=== PATIENT | female | born 1975 | race American Indian/Alaskan Native ===

== ENCOUNTER 2017-06-30 10:16 | Emergency (ER) | payer BC ==
[2017-06-30 10:38] VITALS: BP 126/81
--- NOTE | 2017-06-30 11:28 | Emergency Department Report ---
ED Eye Problem HPI - General Chief complaint: Eye Problems Stated complaint: NAUSEA/VOMITING Time Seen by Provider: 06/30/17 11:22 Source: patient Mode of arrival: Ambulatory Limitations: No Limitations - History of Present Illness Initial comments: 42-year-old -[place] female comes in for complaint of pinkeye that started last Sunday not this Sunday. Patient reports that she went to [facility] and was given medication for her eyes which was tobramycin drops. Patient reports that the eyedrops have not been working and they're making her lightheaded. Patient reports to the right eye soreness on the top of them are itchy she does admit to mild photophobia and denies any blurriness denies any change in vision. Patient has no past medical history currently takes no other medications. MD chief complaint: eye pain, eye redness -: week(s) (1) Location: right eye, left eye, both eyes Eye Symptoms: redness, itching, photophobia Severity scale (0 -10): 7 Consistency: constant Treatments Prior to Arrival: other (tobramycin drops) - Related Data Previous Rx's Medication Instructions Recorded Last Taken Type Ketotifen Fumarate [Zaditor] 5 ml OP QDAY 30 Days #1 bottle 06/30/17 Unknown Rx Allergies Allergy/AdvReac Type Severity Reaction Status Date / Time No Known Allergies Allergy Unverified 06/30/17 11:34 ED Review of Systems ROS: Stated complaint: NAUSEA/VOMITING Other details as noted in HPI Constitutional: denies: chills, fever Eyes: eye pain ENT: denies: ear pain, throat pain Respiratory: denies: cough, shortness of breath, wheezing Cardiovascular: denies: chest pain, palpitations Endocrine: no symptoms reported Gastrointestinal: denies: abdominal pain, nausea, diarrhea Genitourinary: denies: urgency, dysuria, discharge Musculoskeletal: denies: back pain, joint swelling, arthralgia Skin: denies: rash, lesions Neurological: denies: headache, weakness, paresthesias Psychiatric: denies: anxiety, depression Hematological/Lymphatic: denies: easy bleeding, easy bruising ED Past Medical Hx - Past Medical History Previous Medical History?: No - Surgical History Past Surgical History?: Yes Additional Surgical History: Gallbladder Removed - Social History Smoking Status: Never Smoker - Medications Home Medications: Home Medications Medication Instructions Recorded Confirmed Last Taken Type Ketotifen Fumarate [Zaditor] 5 ml OP QDAY 30 Days #1 bottle 06/30/17 Unknown Rx ED Physical Exam - General Limitations: No Limitations General appearance: alert, in no apparent distress - Head Head exam: Present: atraumatic, normocephalic - Eye Eye exam: Present: normal appearance - Expanded Eye Exam Expanded Pupils: Regular, Round: Bilateral, Reactive: Bilateral, Mydriasis: Bilateral Sclera/Conjunctival: Injection: Bilateral Anterior chamber: Normal Inspection: Bilateral Posterior chamber: Deferred: Bilateral IOP measured with: other ED Course Vital Signs 06/30/17 10:36 Temperature 98.1 F Pulse Rate 85 Respiratory 20 Rate Blood Pressure 126/81 [Right] O2 Sat by Pulse 100 Oximetry ED Medical Decision Making - Medical Decision Making Patient's been evaluated with his provider fast track. Discussed the patient and will do an eye exam. And also discussed the patient is eye exam is within normal limits we'll change her medication. Critical care attestation.: If time is entered above; I have spent that time in minutes in the direct care of this critically ill patient, excluding procedure time. ED Disposition Clinical Impression: Allergic conjunctivitis of both eyes Disposition: DC-01 TO HOME OR SELFCARE Is pt being admited?: No Does the pt Need Aspirin: No Condition: Stable Instructions: Conjunctivitis (ED) Additional Instructions: Use eyedrops as prescribed. 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 Prescriptions: Ketotifen Fumarate [Zaditor] 5 ml OP QDAY 30 Days #1 bottle Referrals: HUMZA CASTRO MD [Primary Care Provider] - 3-5 Days KATHERINE BROWN MD [Staff Physician] - 3-5 Days
[2017-06-30] MEDS ORDERED: FUL-GLO OP ONE ×2 (11:37→11:42)
[2017-06-30] MEDS ORDERED: TETRACAINE 0.5% OU ONE (11:39)
[2017-06-30] MEDS ORDERED: TETRACAINE 0.5% ONE (11:42)
[2017-06-30] MEDS ORDERED: BSS ONE (11:42)
== END 2017-06-30 12:11 | disposition home or self-care (01) ==
LOC: ED 10:16
DX: H10.13 Acute atopic conjunctivitis, bilateral (principal)
CPT/HCPCS: 99282

== ENCOUNTER 2020-02-06 12:43 | Emergency (ER) | payer BC, OTHER ==
--- NOTE | 2020-02-06 14:51 | Emergency Department Report ---
ED Female HPI - General Chief complaint: Urogenital-Female Stated complaint: KLEIN WHEN URINATE/UTI PAIN Time Seen by Provider: 02/06/20 14:28 Source: patient Mode of arrival: Ambulatory Limitations: No Limitations - History of Present Illness Initial comments: Patient states that she has been dealing with recurrent UTI symptoms for the past 2 years and is scheduled to have a follow-up with urology but not for the next 4 weeks. She reports today that she has increased dysuria after just completing a prescription for amoxicillin and she is also concerned she may have a yeast infection. Reports associated lower abdominal pain but denies fevers or backslash flank pain. No alleviating or exacerbating factors. Onset gradual. Moderate severity. - Related Data Previous Rx's Medication Instructions Recorded Last Taken Type Ketotifen Fumarate [Zaditor] 5 ml OP QDAY 30 Days #1 bottle 06/30/17 Unknown Rx Fluconazole [Diflucan TAB] 200 mg PO ONCE #2 tablet 02/06/20 Unknown Rx Phenazopyridine [Pyridium] 200 mg PO TID #9 tab 02/06/20 Unknown Rx cefUROXime [Ceftin] 500 mg PO Q12H #40 tablet 02/06/20 Unknown Rx Allergies Allergy/AdvReac Type Severity Reaction Status Date / Time No Known Allergies Allergy Unverified 06/30/17 11:34 ED Review of Systems ROS: Stated complaint: KLEIN WHEN URINATE/UTI PAIN Other details as noted in HPI Comment: All other systems reviewed and negative Genitourinary: as per HPI ED Past Medical Hx - Past Medical History Previous Medical History?: No - Surgical History Past Surgical History?: Yes Additional Surgical History: Gallbladder Removed - Social History Smoking Status: Never Smoker - Medications Home Medications: Home Medications Medication Instructions Recorded Confirmed Last Taken Type Ketotifen Fumarate [Zaditor] 5 ml OP QDAY 30 Days #1 bottle 06/30/17 Unknown Rx Fluconazole [Diflucan TAB] 200 mg PO ONCE #2 tablet 02/06/20 Unknown Rx Phenazopyridine [Pyridium] 200 mg PO TID #9 tab 02/06/20 Unknown Rx cefUROXime [Ceftin] 500 mg PO Q12H #40 tablet 02/06/20 Unknown Rx ED Physical Exam - General Limitations: No Limitations General appearance: alert, in no apparent distress - Head Head exam: Present: atraumatic, normocephalic - Eye Eye exam: Present: normal appearance - ENT ENT exam: Present: mucous membranes moist - Neck Neck exam: Present: normal inspection - Respiratory Respiratory exam: Present: normal lung sounds bilaterally. Absent: respiratory distress - Cardiovascular Cardiovascular Exam: Present: regular rate, normal rhythm. Absent: systolic murmur, diastolic murmur, rubs, gallop - GI/Abdominal GI/Abdominal exam: Present: soft, normal bowel sounds. Absent: distended, tenderness, guarding, rebound - Extremities Exam Extremities exam: Present: normal inspection - Back Exam Back exam: Present: normal inspection - Neurological Exam Neurological exam: Present: alert, oriented X3 - Psychiatric Psychiatric exam: Present: normal affect, normal mood - Skin Skin exam: Present: warm, dry, intact, normal color. Absent: rash ED Course Vital Signs 02/06/20 13:08 Temperature 99.0 F Pulse Rate 85 Respiratory 18 Rate Blood Pressure 147/83 O2 Sat by Pulse 100 Oximetry ED Medical Decision Making - Lab Data Lab Results 02/06/20 Range/Units 14:26 Urine Color Yellow (Yellow) Urine Turbidity Cloudy (Clear) Urine pH 6.0 (5.0-7.0) Ur Specific Cornelius 1.020 (1.003-1.030) Urine Protein 30 mg/dl (Negative) mg/dL Urine Glucose (UA) Neg (Negative) mg/dL Urine Ketones Neg (Negative) mg/dL Urine Blood Mod (Negative) Urine Nitrite Neg (Negative) Urine Bilirubin Neg (Negative) Urine Urobilinogen < 2.0 (<2.0) mg/dL Ur Leukocyte Esterase Lg (Negative) Urine WBC (Auto) 95.0 H (0.0-6.0) /HPF Urine RBC (Auto) 39.0 (0.0-6.0) /HPF U Epithel Cells (Auto) 30.0 H (0-13.0) /HPF Urine Mucus 2+ /HPF Urine HCG, Qual Negative (Negative) - Medical Decision Making Patient with recurrent UTI symptoms despite recent treatment with amoxicillin. She also believes she has a yeast infection. She does have follow-up with urology. Given the repetitive nature of this, query interstitial cystitis. We will send culture on urine and treat. - Differential Diagnosis UTI, interstitial cystitis Critical care attestation.: If time is entered above; I have spent that time in minutes in the direct care of this critically ill patient, excluding procedure time. ED Disposition Clinical Impression: UTI (urinary tract infection) Qualifiers: Urinary tract infection type: acute cystitis Hematuria presence: without hematuria Qualified Code(s): N30.00 - Acute cystitis without hematuria Disposition: TO HOME OR SELFCARE Is pt being admited?: No Condition: Stable Instructions: Urinary Tract Infection in Women (ED) Prescriptions: cefUROXime [Ceftin] 500 mg PO Q12H #40 tablet Fluconazole [Diflucan TAB] 200 mg PO ONCE #2 tablet Phenazopyridine [Pyridium] 200 mg PO TID #9 tab Time of Disposition: 15:13
[2020-02-06 15:02] LABS: Bilirubin,Urine NEG (Negative); Blood,Urine MOD (Negative); Color,Urine Yellow (Yellow); HCG Qualitative,Urine Negative (Negative); Mucus,Urine 2+ /HPF; Urobilinogen,Urine < 2.0 mg/dL (<2.0)
[2020-02-06] MEDS ORDERED: LIDOCAINE-MPF (1%) 10 MG/1 ML VIAL 5 ML INFILTRATI ONE (15:11)
[2020-02-06] MEDS ORDERED: AZITHROMYCIN 250 MG TAB PO ONE (15:11)
[2020-02-06 15:14] VITALS: BP 120/88
== END 2020-02-06 15:47 | disposition home or self-care (01) ==
LOC: ED 12:43
DX: N39.0 Urinary tract infection, site not specified (principal); Z98.890 Other specified postprocedural states; Z79.899 Other long term (current) drug therapy
CPT/HCPCS: 81001; 81025; 87086; 96372; 99283; J0696